=== PATIENT | female | born 1955 | race Caucasian/White ===

== ENCOUNTER 2019-08-05 02:46 | Emergency (ER) | payer SELFPAY ==
[~2019-08-05] VITALS: Ht 167.6 cm; Wt 60.0 kg
--- NOTE | 2019-08-05 03:27 | NUR ---
PT ASSISTED TO BATHROOM, GAIT MOST UNSTEADY, PT CONTINUES TO BLURT PROFANITIES, DOES FOLLOW DIRECTION WITH GREAT PATIENCE REQUIRED FROM CAREGIVERS.
--- NOTE | 2019-08-05 03:53 | NUR ---
PT REQUIRING CONSTANT REMINDERS TO STAY SEATED FOR SAFETY.
--- NOTE | 2019-08-05 03:54 | NUR ---
SECURITY CALLED TO PLEASE COME ASSIST WITH CALMING PT DOWN.
--- NOTE | 2019-08-05 04:22 | NUR ---
PT APPEARS TO BE SLEEPING QUIETLY AT THIS TIME, RESP RATE EVEN AND REGULAR
[2019-08-05 04:30] VITALS: BP 116/68
--- NOTE | 2019-08-05 05:01 | NUR ---
SLEEPING QUIETLY, REMAINS WITHIN VIEW OF NURSES STATION FOR SAFETY.
--- NOTE | 2019-08-05 06:03 | NUR ---
sleeping quietly, resp rate even and regular, remains within view of nurses station for safety
--- NOTE | 2019-08-05 07:18 | NUR ---
late entry for 0645 received bedside report from HELENA Beth
--- NOTE | 2019-08-05 07:25 | NUR ---
pt continues to sleep. nadn. resps equal and unlabored.
--- NOTE | 2019-08-05 08:25 | NUR ---
PT CONTINUES TO SLEEP. NADN. RESPS EQUAL AND UNLABORED.
--- NOTE | 2019-08-05 08:50 | NUR ---
PT AMBULATORY WITH STEADY GAIT . PT REQUESTS TO D/C. Patient/Caregiver given discharge instructions and they have confirmed that they understand the instructions. Patient ambulatory with steady gait. PT LEFT WITH ALL PERSONAL BELONGINGS.
== END 2019-08-05 08:52 | disposition home or self-care (01) ==
LOC: ED 08:40
DX: F10.120 Alcohol abuse with intoxication, uncomplicated (principal); Z72.9 Problem related to lifestyle, unspecified; Y90.0 Blood alcohol level of less than 20 mg/100 ml
CPT/HCPCS: 99283